=== PATIENT | female | born 1990 | race Caucasian/White ===

== ENCOUNTER 2022-04-21 17:52 | Emergency (ER) | payer OTHER ==
[~2022-04-21] VITALS: Ht 165.1 cm; Wt 59.0 kg
[2022-04-21 17:55] VITALS: BP 117/74
--- NOTE | 2022-04-21 17:55 | NUR ---
TO ER CHAIR 1, BIBS C/O EXPERIENCING WITHDRAWAL SYMPTOMS FRM FENTANYL USE x 1WK USES CRATOM TO STOP WITHDRAWAL, AAOX3, BREATHING EVEN AND NON LABORED, AWAITING MD ORDERS
--- NOTE | 2022-04-21 18:46 | NUR ---
Patient discharged to home in stable condition. Written and verbal after care instructions given. Patient verbalizes understanding of instruction.
== END 2022-04-21 18:46 | disposition home or self-care (01) ==
LOC: ER 18:01
DX: F11.13 Opioid abuse with withdrawal (principal)